=== PATIENT | male | born 1995 | race Caucasian/White ===

== ENCOUNTER 2018-08-28 17:58 | Emergency (ER) | payer BC ==
[~2018-08-28] VITALS: Ht 170.2 cm; Wt 79.2 kg
[2018-08-28 18:00] VITALS: BP 125/78
[2018-08-28 18:59] LABS: MICROSCOPIC INDICATED
[2018-08-28 19:02] LABS: CULTURE INDICATED? NO
== END 2018-08-28 19:47 | disposition home or self-care (01) ==
LOC: ED 18:47
DX: N45.1 Epididymitis (principal)
CPT/HCPCS: 76870; 81001; 87491; 87591; 99284